=== PATIENT | male | born 1960 | race African-American/Black ===

== ENCOUNTER 2021-07-03 10:43 | Outpatient (CLI) | payer MEDICARE ==
[2021-07-03 12:59] LABS: Anion Gap 13 mmol/L (10-20); BUN (Urea Nitrogen) 13 mg/dL (8.4-25.7); Calc. Creatinine Clearance 0 mL/min (70-130); Calcium 10.1 mg/dL (7.8-10.44); Carbon Dioxide 25 mmol/L (22-29); Chloride 105 mmol/L (98-107); Glucose 94 mg/dL (70-105); Sodium 139 mmol/L (136-145)
[2021-07-03 13:03] LABS: Hemoglobin 13.9 g/dL (13.5-17.5); Mean Corpuscular Volume 87.7 fl (81.2-95.1); Mean Platelet Volume 11.1 fl (7.4-10.4); Platelet Count 211 10x3/uL (150-450); RBC Distribution Width 13.1 % (11.5-14.5); White Blood Cell (WBC) Count 5.1 10x3/uL (3.5-10.5)
[2021-07-03 13:15] LABS: INR-International Normal Ratio 0.9; PTT 26.2 sec (22.0-33.0); Prothrombin Time 10.4 sec (9.5-12.1)
[2021-07-03 23:43] LABS: SARS-CoV-2 PCR by NAA Not Detected (NotDetected)
== END 2021-07-03 10:44 | disposition home or self-care (01) ==
LOC: LABBT 10:43
PROVIDERS: ATTEND Neurological Surgery
DX: Z01.818 Encounter for other preprocedural examination (principal); Z20.822 Contact with and (suspected) exposure to COVID-19
CPT/HCPCS: 80048; 85027; 85610; 85730; 93005; U0003; U0005; 93010

== ENCOUNTER 2021-07-06 10:33 | Observation (INO) | payer MEDICARE ==
[2021-07-05 13:34] VITALS: BMI 29.0
[2021-07-06] MEDS ORDERED: ceFAZolin 2 GM/DEX 5% 100 ML BAG ONE (11:22)
[2021-07-06] MEDS ORDERED: Neomycin-Polymyxin 1 ML AMP ONE (11:51)
[2021-07-06] MEDS ORDERED: Thrombin 5000 UNITS/5 ML VIAL ONE (11:51)
[2021-07-06] MEDS ORDERED: Fentanyl 100 MCG/2 ML VIAL ONE ×4 (12:02→17:53)
[2021-07-06] MEDS ORDERED: Midazolam HCl 2 mg/2 ml Vial ONE (12:02)
[2021-07-06] MEDS ORDERED: PHENYLEPHRINE-NS 100 MCG/ML 10 ML SYRINGE ONE (12:49)
[2021-07-06] MEDS ORDERED: Ondansetron PF 4 MG/2 ML Vial ONE (12:49)
[2021-07-06] MEDS ORDERED: Rocuronium Bromide 10 MG/ML (10ML VIAL) ONE (12:49)
[2021-07-06] MEDS ORDERED: PROPOFOL 200 MG/20 ML VIAL ONE (12:49)
[2021-07-06] MEDS ORDERED: Ketorolac Tromethamine 30 MG/ML VIAL ONE (12:49)
[2021-07-06] MEDS ORDERED: Lidocaine 1% PF 5 ML VIAL ONE (12:49)
[2021-07-06] MEDS ORDERED: Dexamethasone 20 MG/5 ML VIAL ONE (12:49)
[2021-07-06] MEDS ORDERED: Acetaminophen/Codeine 30-300mg Tablet PO PRN (17:17)
[2021-07-06] MEDS ORDERED: Milk Of Magnesia 30 ML UDCUP PO PRN (17:17)
[2021-07-06] MEDS ORDERED: Promethazine HCl 12.5 MG SUPP PR PRN (17:17)
[2021-07-06] MEDS ORDERED: Ondansetron PF 4 MG/2 ML Vial IVP PRN (17:17)
[2021-07-06] MEDS ORDERED: HYDROcodone/Acetaminophen 10/325 mg Tablet PO PRN (17:17)
[2021-07-06] MEDS ORDERED: diphenhydrAMINE 50 MG/ML VIAL IVP PRN (17:17)
[2021-07-06] MEDS ORDERED: Promethazine HCl 25 MG/ML VIAL IM PRN (17:17)
[2021-07-06] MEDS ORDERED: Bisacodyl 10 MG SUPP PR PRN (17:17)
[2021-07-06] MEDS ORDERED: tiZANidine HCl 4 MG TAB PO PRN (17:17)
[2021-07-06] MEDS ORDERED: Prochlorperazine 10 MG/2 ML VIAL IM PRN (17:17)
[2021-07-06] MEDS ORDERED: HYDROcodone/Acetaminophen 7.5/325 mg Tablet PO PRN (17:17)
[2021-07-06] MEDS ORDERED: CEFAZOLIN 2 GM in Premix Bag 1 BAG IVPB SCH (17:30)
[2021-07-06] MEDS ORDERED: Morphine 4 MG/ML VIAL SLOW IVP PRN (18:31)
[2021-07-06] MEDS: ceFAZolin Sodium/D5W 2 GM in Premix Bag 1 BAG IVPB SCH (19:40)
[2021-07-06] MEDS: Sodium Chloride 0.9% 1,000 ML IV SCH (19:40)
[2021-07-06] MEDS: Acetaminophen 325 MG TAB PO PRN (19:47)
[2021-07-07] MEDS: Acetaminophen 325 MG TAB PO PRN (02:32)
[2021-07-07] MEDS: ceFAZolin Sodium/D5W 2 GM in Premix Bag 1 BAG IVPB SCH (02:33)
[2021-07-07] MEDS ORDERED: Tamsulosin HCl 0.4 MG CAP PO SCH (06:00)
[2021-07-07] MEDS: Sodium Chloride 0.9% 1,000 ML IV SCH (06:06)
[2021-07-07 08:29] VITALS: BP 161/94; TEMP 98.3
[2021-07-07] MEDS ORDERED: Atorvastatin Calcium 40 MG TAB PO SCH (09:00)
[2021-07-07] MEDS ORDERED: Lisinopril 20 MG TAB PO SCH (09:00)
[2021-07-07] MEDS ORDERED: Metoprolol Tartrate 25 MG TAB PO SCH (09:00)
[2021-07-07] MEDS ORDERED: Amlodipine 10 MG TAB PO SCH (09:00)
[2021-07-07] MEDS ORDERED: Hydrochlorothiazide 25 MG TAB PO SCH (09:00)
== END 2021-07-07 09:41 | disposition home or self-care (01) ==
LOC: SDC 10:33 → SURG A 17:17
PROVIDERS: ADMIT Neurological Surgery; ATTEND Neurological Surgery
PROC: 0RG20A0 Fusion of 2 or more Cervical Vertebral Joints with Interbody Fusion Device, Anterior Approach, Anterior Column, Open Approach (ICD-10-PCS; principal; 2021-07-06)
DX: M50.021 Cervical disc disorder at C4-C5 level with myelopathy (principal); M50.121 Cervical disc disorder at C4-C5 level with radiculopathy; I11.9 Hypertensive heart disease without heart failure; E78.5 Hyperlipidemia, unspecified; M19.90 Unspecified osteoarthritis, unspecified site; E78.00 Pure hypercholesterolemia, unspecified; G25.81 Restless legs syndrome; Z87.891 Personal history of nicotine dependence; Z79.899 Other long term (current) drug therapy; Z95.1 Presence of aortocoronary bypass graft; Z95.5 Presence of coronary angioplasty implant and graft
CPT/HCPCS: 20930; 20936; 22551; 22552; 22845; 22853 ×2; 76000; 96374; 96376; C1713 ×4; C1776; G0378 ×2; J1100; J1885; J2250; J2405; J2704; J3010; J7050